=== PATIENT | male | born 1975 | race African-American/Black ===

== ENCOUNTER 2021-04-07 22:02 | Emergency (ER) | payer BC ==
[~2021-04-07] VITALS: Ht 188 cm; Wt 138.3 kg
[2021-04-07] MEDS ORDERED: ADIPEX-P37.5 MG PO (22:49)
[2021-04-07] MEDS ORDERED: GLEEVEC400 MG PO (22:50)
[2021-04-07 23:59] LABS: URINE BILIRUBIN 1+ (Negative); URINE BLOOD 1+ (Negative); URINE CLARITY CLOUDY; URINE COLOR YELLOW; URINE GLUCOSE-RANDOM* NEGATIVE (Negative); URINE KETONES TRACE (Negative); URINE NITRITE-REFLEX NEGATIVE (Negative); URINE PROTEIN (DIPSTICK) NEGATIVE (Negative); URINE SPECIFIC GRAVITY >= 1.030 (1.005-1.035)
[2021-04-08] LABS: URINE LEUKOCYTES-REFLEX 2+ (Negative)
[2021-04-08 00:56] LABS: CASTS None Seen /LPF (None Seen); CRYSTALS None Seen /LPF (None Seen); MUCUS 0-3 Light strn/LPF (None Seen); SQUAMOUS 4-10 Moderate /LPF (0-3); URINE RBC 3-10 Few /HPF (NONE SEEN); WBC CLUMPS Few (None Seen)
[2021-04-08 01:48] VITALS: BP 135/84
[2021-04-08] MEDS ORDERED: DOXYCYCLINE 10100 MG PO (02:03)
--- NOTE | 2021-04-08 07:25 | NUR ---
PER DR. ALCANTAR'S REQUEST, DESPITE PATIENT LEAVING PRIOR TO DIACHARGE INSTRUCTIONS OR MEDICATION ADMINISTRATION, PATIENT WAS NOTIFIED OF DIAGNOSIS FOR URINARY TRACT INFECTION AND ELECTRONIC PRESCRIPTION THAT HAS BEEN SENT FOR PATIENT. PATIENT STATES UNDERSTANDING. NO FURTHER QUESTIONS.
== END 2021-04-08 01:50 | disposition home or self-care (01) ==
LOC: ER 22:02
PROVIDERS: Emergency Medicine; Nurse Practitioner
DX: N39.0 Urinary tract infection, site not specified (principal); R31.9 Hematuria, unspecified; Z79.899 Other long term (current) drug therapy